=== PATIENT | male | born 1970 | race Caucasian/White ===

== ENCOUNTER 2016-10-05 01:13 | Inpatient (IN) | payer OTHER ==
[2016-10-05] VITALS (8 sets, daily range): BP systolic 131–165; BP diastolic 50–123; Ht 177.8 cm; Wt 129.3 kg
[~2016-10-05] VITALS: Ht 177.8 cm; Wt 129.3 kg
[~2016-10-05 01:13] MED LIST: AMLODIPINE BES2.5 M1 PO; AMLODIPINE BESYL5 M1 PO; ASPIR 8181 MG PO; ASPIR-LOW81 M1 PO; ATORVASTATIN CA40 M1 PO; ATORVASTATIN CA80 M1 PO; CARVEDILOL25 M1 PO; CARVEDILOL3.125 M1 PO; CLONIDINE HCL0.1 MG PO; DULERA1 AR2; DULERA1 AR2 INH; FUROSEMIDE20 MG PO; HYDRALAZINE HCL25 MG PO; HYDRALAZINE HYD50 MG PO; IMDUR ER30 M1 PO; IMDUR30 MG PO; LANTUS SOLOS100 U/M1; LANTUS SOLOS100 U/M1 SQ; LASIX20 MG PO; LASIX40 MG PO; LEVOTHYROXIN0.025 M2 PO; LEVOTHYROXINE0.05 M2 PO; LIPITOR80 MG PO; METOPROLOL SUCC25 M1; MOMETASONE FUROA0.11; NITROSTAT0.4 MG SL; PLA75 PO; XOPENEX HF0.045 MG/1; XOPENEX HF0.045 MG/1 INH; XOPENEX1.25 MG/3
[2016-10-05 02:02] LABS: BASOPHIL % 0.4 % (0-2); PLATELET COUNT 349 x10^3mcL (130-400); RED CELL DISTRIBUTION WIDTH 13.4 % (11.5-14.5)
[2016-10-05 02:10] LABS: ALBUMIN 3.3 g/dL (3.4-5.0); BILIRUBIN TOTAL 0.44 mg/dL (0.20-1.00); CALCIUM 8.6 mg/dL (8.5-10.1); CARBON DIOXIDE 24.8 mmol/L (21-32); CREATININE SERUM 2.1 mg/dL (0.7-1.3); POTASSIUM SERUM 5.1 mmol/L (3.5-5.1)
[2016-10-05 04:31] LABS: MAGNESIUM 2.7 mg/dL (1.8-2.4)
[2016-10-05 04:32] LABS: CHOLESTEROL/HDL RATIO 2.8
[2016-10-05 07:42] LABS: AMPHETAMINE QUAL UR NONE DETECTED (NEG <=1000)
[2016-10-05 08:22] LABS: microscopic required? YES; urine erythrocyte TRACE (NEGATIVE)
[2016-10-06 05:58] LABS: BASOPHIL % 1.3 % (0-2); PLATELET COUNT 319 x10^3mcL (130-400); RED CELL DISTRIBUTION WIDTH 13.1 % (11.5-14.5)
[2016-10-06 06:08] LABS: CALCIUM 8.4 mg/dL (8.5-10.1); CARBON DIOXIDE 21.1 mmol/L (21-32)
[2016-10-06 06:12] VITALS: BP 132/63
[2016-10-06 09:27] VITALS: BP 120/63
[2016-10-06 13:12] VITALS: BP 107/68
[2016-10-06 21:19] VITALS: BP 136/59
[2016-10-06 23:52] LABS: CARBON DIOXIDE 23.4 mmol/L (21-32); CREATININE SERUM 3.3 mg/dL (0.7-1.3); POTASSIUM SERUM 5.3 mmol/L (3.5-5.1)
[2016-10-07 05:56] LABS: BASOPHIL % 0.7 % (0-2); PLATELET COUNT 346 x10^3mcL (130-400); RED CELL DISTRIBUTION WIDTH 13.7 % (11.5-14.5)
[2016-10-07 06:09] VITALS: BP 135/84
[2016-10-07 07:18] LABS: CARBON DIOXIDE 22.1 mmol/L (21-32); CREATININE SERUM 3.4 mg/dL (0.7-1.3); POTASSIUM SERUM 5.3 mmol/L (3.5-5.1)
[2016-10-07 09:43] VITALS: BP 124/57
[2016-10-07 13:44] VITALS: BP 106/52
[2016-10-07 16:57] LABS: CALCIUM 7.7 mg/dL (8.5-10.1); CARBON DIOXIDE 20.1 mmol/L (21-32); CREATININE SERUM 3.8 mg/dL (0.7-1.3); POTASSIUM SERUM 5.5 mmol/L (3.5-5.1)
[2016-10-07 17:08] VITALS: BP 110/49
[2016-10-07 21:32] VITALS: BP 122/69
[2016-10-08 05:52] LABS: BASOPHIL % 0.6 % (0-2); PLATELET COUNT 319 x10^3mcL (130-400); RED CELL DISTRIBUTION WIDTH 13.4 % (11.5-14.5)
[2016-10-08 05:56] LABS: CALCIUM 8.1 mg/dL (8.5-10.1); CARBON DIOXIDE 23.9 mmol/L (21-32); POTASSIUM SERUM 5.5 mmol/L (3.5-5.1)
[2016-10-08 05:57] VITALS: BP 119/53
[2016-10-08 06:00] LABS: CREATININE SERUM 4.1 mg/dL (0.7-1.3)
[2016-10-08 08:12] VITALS: BP 138/69
[2016-10-08 12:01] VITALS: BP 138/69
[2016-10-08 13:51] VITALS: BP 113/66
[2016-10-08 17:36] VITALS: BP 111/56
[2016-10-08 20:57] VITALS: BP 107/52
[2016-10-09 03:04] LABS: CALCIUM 7.9 mg/dL (8.5-10.1); CARBON DIOXIDE 23.4 mmol/L (21-32); POTASSIUM SERUM 5.2 mmol/L (3.5-5.1)
[2016-10-09 03:47] LABS: CREATININE SERUM 4.7 mg/dL (0.7-1.3)
[2016-10-09 05:30] VITALS: BP 124/59
[2016-10-09 05:45] VITALS: BP 124/59
[2016-10-09 06:35] LABS: CALCIUM 7.8 mg/dL (8.5-10.1); PHOSPHOROUS 8.1 mg/dL (2.5-4.9); POTASSIUM SERUM 5.1 mmol/L (3.5-5.1)
[2016-10-09 06:43] LABS: CREATININE SERUM 4.6 mg/dL (0.7-1.3)
[2016-10-09 10:22] VITALS: BP 121/91
[2016-10-09 13:20] VITALS: BP 140/69
[2016-10-09 17:42] VITALS: BP 166/78
[2016-10-09 18:42] LABS: CALCIUM 8.3 mg/dL (8.5-10.1); CARBON DIOXIDE 19.4 mmol/L (21-32); POTASSIUM SERUM 5.1 mmol/L (3.5-5.1)
[2016-10-09 18:56] LABS: CREATININE SERUM 4.4 mg/dL (0.7-1.3)
[2016-10-09 21:05] VITALS: BP 133/59
[2016-10-10 06:36] VITALS: BP 131/72
[2016-10-10 08:28] LABS: BASOPHIL % 1.3 % (0-2); PLATELET COUNT 285 x10^3mcL (130-400); RED CELL DISTRIBUTION WIDTH 13.4 % (11.5-14.5)
[2016-10-10 08:34] LABS: CALCIUM 8.2 mg/dL (8.5-10.1); CARBON DIOXIDE 20.9 mmol/L (21-32); POTASSIUM SERUM 5.3 mmol/L (3.5-5.1)
[2016-10-10 08:39] LABS: CREATININE SERUM 4.1 mg/dL (0.7-1.3)
[2016-10-10 10:01] VITALS: BP 151/80
[2016-10-10 17:54] VITALS: BP 159/80
[2016-10-10 19:30] VITALS: BP 144/71
[2016-10-11 06:07] VITALS: BP 123/60
[2016-10-11 06:14] LABS: MAGNESIUM 2.6 mg/dL (1.8-2.4); PHOSPHOROUS 4.8 mg/dL (2.5-4.9)
[2016-10-11 08:53] VITALS: BP 123/60
[2016-10-11 09:41] VITALS: BP 157/74
[2016-10-11 10:39] LABS: BILIRUBIN TOTAL 0.45 mg/dL (0.20-1.00); CALCIUM 8.6 mg/dL (8.5-10.1); CARBON DIOXIDE 25.3 mmol/L (21-32); CREATININE SERUM 3.2 mg/dL (0.7-1.3); POTASSIUM SERUM 4.8 mmol/L (3.5-5.1); TOTAL PROTEIN, SERUM 6.4 g/dL (6.4-8.2)
[2016-10-11 10:43] LABS: ALBUMIN 3.1 g/dL (3.4-5.0)
[2016-10-11 13:50] VITALS: BP 138/72
[2016-10-11 22:00] VITALS: BP 145/66
[2016-10-12 06:08] VITALS: BP 157/75
[2016-10-12 09:55] VITALS: BP 154/61
[2016-10-12 12:12] LABS: CALCIUM 8.7 mg/dL (8.5-10.1); CARBON DIOXIDE 25.3 mmol/L (21-32); CREATININE SERUM 2.8 mg/dL (0.7-1.3); POTASSIUM SERUM 4.7 mmol/L (3.5-5.1)
[2016-10-12 13:55] VITALS: BP 101/62
[2016-10-12 17:27] LABS: AMPHETAMINE QUAL UR NONE DETECTED (NEG <=1000)
[2016-10-12 17:54] LABS: UA SPECIFIC GRAVITY 1.015 (1.005-1.035); microscopic required? YES; urine erythrocyte NEGATIVE (NEGATIVE)
[2016-10-12 18:29] VITALS: BP 134/64
[2016-10-12 21:34] VITALS: BP 150/64
[2016-10-13 05:09] VITALS: BP 137/55
[2016-10-13 09:22] VITALS: BP 170/73
[2016-10-13 09:31] LABS: CALCIUM 8.7 mg/dL (8.5-10.1); CARBON DIOXIDE 29.6 mmol/L (21-32); CREATININE SERUM 2.7 mg/dL (0.7-1.3); POTASSIUM SERUM 4.7 mmol/L (3.5-5.1)
[2016-10-13 10:19] LABS: BASOPHIL % 0.3 % (0-2); PLATELET COUNT 297 x10^3mcL (130-400); RED CELL DISTRIBUTION WIDTH 13.3 % (11.5-14.5)
[2016-10-13 12:50] VITALS: BP 140/68
[2016-10-13 18:35] VITALS: BP 135/49
[2016-10-13 21:29] VITALS: BP 140/59
[2016-10-14 06:00] VITALS: BP 155/69
[2016-10-14 06:42] LABS: BASOPHIL % 0.6 % (0-2); PLATELET COUNT 300 x10^3mcL (130-400); RED CELL DISTRIBUTION WIDTH 13.2 % (11.5-14.5)
[2016-10-14 06:52] LABS: CALCIUM 8.8 mg/dL (8.5-10.1); CARBON DIOXIDE 27.8 mmol/L (21-32); CREATININE SERUM 2.4 mg/dL (0.7-1.3); POTASSIUM SERUM 4.7 mmol/L (3.5-5.1)
[2016-10-14 09:52] VITALS: BP 150/70
[2016-10-14 13:42] VITALS: BP 108/56
[2016-10-14 17:45] VITALS: BP 135/46
[2016-10-14 21:41] VITALS: BP 152/70
[2016-10-15 05:37] VITALS: BP 158/73
[2016-10-15 06:56] LABS: RED CELL DISTRIBUTION WIDTH 12.8 % (11.5-14.5)
[2016-10-15 08:07] LABS: CALCIUM 8.5 mg/dL (8.5-10.1); CARBON DIOXIDE 25.9 mmol/L (21-32); CREATININE SERUM 2.4 mg/dL (0.7-1.3); MAGNESIUM 1.8 mg/dL (1.8-2.4); POTASSIUM SERUM 4.8 mmol/L (3.5-5.1)
[2016-10-15 08:35] LABS: BASOPHIL % 2.4 % (0-2)
[2016-10-15 09:02] LABS: PLATELET COUNT 313 x10^3mcL (130-400)
[2016-10-15 09:21] VITALS: BP 136/63
[2016-10-15] MEDS ORDERED: IMD60 PO (11:20)
[2016-10-15] MEDS ORDERED: METOPROLOL TART25 M1 PO (11:21)
[2016-10-15] MEDS ORDERED: LAC30L PO (11:24)
[2016-10-15] MEDS ORDERED: ZES20 PO (11:24)
[2016-10-15] MEDS ORDERED: RAN500A PO (11:25)
[2016-10-15 11:26] VITALS: BP 136/63
[2016-10-15 12:46] VITALS: BP 159/78
[2016-10-15] MEDS ORDERED: NOR5 PO (13:02)
== END 2016-10-15 14:40 | disposition other institution (70) | DRG 280 ==
LOC: ED 01:13 → DU 02:35
PROVIDERS: Emergency Medicine; Family Medicine; Internal Medicine; Internal Medicine Cardiovascular Disease; Internal Medicine Nephrology; ADMIT Internal Medicine
PROC: 05HN33Z Insertion of Infusion Device into Left Internal Jugular Vein, Percutaneous Approach (ICD-10-PCS; principal; 2016-10-08)
PROC: B544ZZA Ultrasonography of Left Jugular Veins, Guidance (ICD-10-PCS; 2016-10-08)
DX: I21.4 Non-ST elevation (NSTEMI) myocardial infarction (principal); J96.00 Acute respiratory failure, unspecified whether with hypoxia or hypercapnia; I50.43 Acute on chronic combined systolic (congestive) and diastolic (congestive) heart failure; N17.0 Acute kidney failure with tubular necrosis; I13.0 Hypertensive heart and chronic kidney disease with heart failure and stage 1 through stage 4 chronic kidney disease, or unspecified chronic kidney disease; I42.0 Dilated cardiomyopathy; E87.2 Acidosis; E44.0 Moderate protein-calorie malnutrition; Z68.41 Body mass index [BMI] 40.0-44.9, adult; I25.119 Atherosclerotic heart disease of native coronary artery with unspecified angina pectoris; J44.9 Chronic obstructive pulmonary disease, unspecified; E03.9 Hypothyroidism, unspecified; E78.5 Hyperlipidemia, unspecified; I25.2 Old myocardial infarction; E11.22 Type 2 diabetes mellitus with diabetic chronic kidney disease; E11.65 Type 2 diabetes mellitus with hyperglycemia; K59.00 Constipation, unspecified; R80.8 Other proteinuria; Z88.5 Allergy status to narcotic agent; I27.2 Other secondary pulmonary hypertension; K56.41 Fecal impaction; N18.9 Chronic kidney disease, unspecified; D64.9 Anemia, unspecified; E87.5 Hyperkalemia; E83.39 Other disorders of phosphorus metabolism; E83.41 Hypermagnesemia; Z79.82 Long term (current) use of aspirin; Z79.4 Long term (current) use of insulin; Z86.73 Personal history of transient ischemic attack (TIA), and cerebral infarction without residual deficits
CPT/HCPCS: 36600; 76770; 80307; 82962; 83880; A9500; J1170; J1642; J1644; J1815; J1940; J2405; J2785; J2930; J3010; J7030; J7644; Q0092; Q0163

== ENCOUNTER 2016-12-06 15:00 | Inpatient (IN) | payer OTHER ==
[~2016-12-06] VITALS: Ht 177.8 cm; Wt 135.7 kg
[~2016-12-06 15:00] MED LIST changes: +IMD60 PO; +LAC30L PO; +METOPROLOL TART25 M1 PO; +NOR5 PO; +RAN500A PO; +ZES20 PO
--- NOTE | 2016-12-06 15:21 | NUR ---
MSE COMPLETED BY DR HAYWOOD
--- NOTE | 2016-12-06 15:27 | NUR ---
BREATHING TREATMENT AT BEDSIDE
--- NOTE | 2016-12-06 15:47 | NUR ---
PT HAS RECIEVED NITRO 0.4 MG SL X3 WITH NO DECREASE IN CHEST PAIN. PT ALSO REMAINS HYPERTENSIVE
[2016-12-06 15:55] LABS: BASOPHIL % 0.8 % (0-2); PLATELET COUNT 319 x10^3mcL (130-400); RED CELL DISTRIBUTION WIDTH 13.7 % (11.5-14.5)
[2016-12-06] MEDS ORDERED: ENALAPRIL MALEA20 MG PO (15:56)
[2016-12-06 16:00] LABS: CALCIUM 8.1 mg/dL (8.5-10.1); CARBON DIOXIDE 22.7 mmol/L (21-32); CREATININE SERUM 2.1 mg/dL (0.7-1.3); POTASSIUM SERUM 4.8 mmol/L (3.5-5.1)
[2016-12-06] MEDS ORDERED: RENVELA800 M1 PO (16:00)
[2016-12-06] MEDS ORDERED: ZEMPLAR1 MC1 PO (16:01)
[2016-12-06 16:07] LABS: BILIRUBIN TOTAL 0.45 mg/dL (0.20-1.00); TOTAL PROTEIN, SERUM 6.5 g/dL (6.4-8.2)
[2016-12-06 17:21] LABS: MAGNESIUM 2.2 mg/dL (1.8-2.4)
[2016-12-06 17:22] LABS: CHOLESTEROL/HDL RATIO 2.5
[2016-12-06 17:32] VITALS: BP 158/77
--- NOTE | 2016-12-06 17:41 | NUR ---
RECEIVED A CALL FROM (MANAGER CALL CENTER) AND HE'S CONSULTED BY , UPDATED HIM OF CURRENT LAB RESULTS AND CXRAY, SAID HE WILL COME TO EVAL THE PT TOMORROW. BUTCH FERNANDES AND KENNA FERNANDES AMDE AWARE OF ABOVE.
[2016-12-06 18:21] VITALS: BP 163/76
--- NOTE | 2016-12-06 18:26 | NUR ---
RECEIVED PT FROM ED VIA SHITAL. ORIENTED PT TO ROOM AND SURROUNDINGS. IV NOTED TO RFA PATENT AND INTACT. TELE 26 PLACED ON PT READING NSR. INSTRUCTED PT ON THE USE OF CALL LIGHT FOR ASSISTANCE. ENDORSED PT TO PRIMARY NURSE BUTCH
--- NOTE | 2016-12-06 18:54 | NUR ---
DR. SALGUERO IN TO SEE PATIENT.
[2016-12-06 19:15] VITALS: BP 170/76
--- NOTE | 2016-12-06 19:15 | NUR ---
RECEIVED PT AWAKE ALERT AND VERBALLY RESPONSIVE.BREATHING EASY AND NON-LABORED,DENIES SOB/DIFFULTY BREATHING.NO COUGHING/CONGESTION NOTED.O2 @ 4L/MIN VIA N/C.O2 SAT @ 97%.DENIES CHESTPAIN AT THIS TIME.BP 170/76 MMHG,HR 72.C/O BACK PAIN 05/07.REQUESTING FOR AIR MATRESS AND SNCACKS AT THIS TIME.DR. RIVERA IN TO SEE PT AWARE OF LATEST BP.ALSO C/O LITTLE URINE OUTPUT ALL DAY.BLADDER NON-DISTENDED.LASIX 80 MG IVP ORDERED.EDEMA TO BLE.GUARDS AT BEDSIDE.WILL CONTINUE TO MONITOR.
--- NOTE | 2016-12-06 19:30 | NUR ---
CALLED DR. ALARCON CALLED FOR PAIN MEDS ORDER.NEW ORDERS GIVEN AND WILL CARRY OUT.DR. RIVERA IN TO SEE PT WITH ORDERS GIVEN WELL.WILL CONTINUE TO MONITOR.
--- NOTE | 2016-12-06 21:00 | NUR ---
HEPARIN DRIP INITIATED.BOLUS 8300 UNITS IVP ADMINISTERED.HEPARIN INFUSION STARTED @ 1500 UNITS/HR.WILL CONTINUE TO MONITOR.
[2016-12-06 22:22] VITALS: BP 150/72
--- NOTE | 2016-12-06 22:22 | NUR ---
BP RECHECKED @ 150/72 MMHG,HR 72.DENIES CHESTPAIN AT THIS TIME.HEPARIN DRIP @ 1500 UNITS/HR INFUSING AND TOLERATING WELL.WILL CONTINUE TO MONITOR.
[2016-12-07 03:44] LABS: BASOPHIL % 0.6 % (0-2); PLATELET COUNT 299 x10^3mcL (130-400); RED CELL DISTRIBUTION WIDTH 13.6 % (11.5-14.5)
--- NOTE | 2016-12-07 04:05 | NUR ---
RECEIVED PTT RESULT 57.4.NO CHANGE PER PROTOCOL.WILL RECHECK PTT IN 4 HOURS.
[2016-12-07 04:09] LABS: CALCIUM 8.1 mg/dL (8.5-10.1); CARBON DIOXIDE 24.2 mmol/L (21-32); CREATININE SERUM 2.2 mg/dL (0.7-1.3); POTASSIUM SERUM 5.3 mmol/L (3.5-5.1)
--- NOTE | 2016-12-07 04:56 | NUR ---
PT SLEPT WITH INTERVALS.GUARDS AT BEDSIDE.MEDICATED WITH DILAUDID 1 MG IVP WITH BENADRYL 25 MG PO FOR BACKPAIN/CHESTPAIN WITH GOOD RELIEF.HEPARIN DRIP 1500 UNITS/HR AND TOLERATED WELL.NO BRUISING/BLEEDING NOTED.ALL NEEDS MET.WILL CONTINUE TO MONITOR.
[2016-12-07 06:37] VITALS: BP 135/78
--- NOTE | 2016-12-07 08:00 | NUR ---
RECEIVED PATIENT ALERT AND ORIENTED TIMES FOUR. PATIENT HAS REQUESTED PAIN MEDICATION AND BENADRYL AND GAVE INDICATED. PATIENT HAS DIMINISHED BREATH SOUNDS AND ABDOMEN IS DISTENDED AND FIRM. IF INTACT AND TO NELLIE RIGHT THUMB. PATIENT HAS BEEN ON HEPARIN DRIP DUE TO ELEVATED TROPONIN. PATIENT AHS PTT DUE AT 800AM. VITALS AT THIS TIME AT 97.5, 60, 20, 135/78, 95% ON 02 AT 3LITES. APTIENT HAS BI PAP WHEN SLEEPING AND ON HHN OF XOPENEX AND ALBUTERAL. APTIEN THAS MILD CONGESTIOIVE HEART FAILURE PER X IGNACIO ND HAS BEEN ON LASIX 80MG IVP INDICATED. PATIENT HAS HISTORY OF DIABETES, RENAL INSUFFICIENCY, HTN, AND CHRONIC PANCREATITIS. 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 PATIENT HAS BEEN ON THE MONITO AND LAST BLOOD SUGAR AT 94. TOPONIN AT 1.226, CA AT 8.1 AND ULTRA SOUND PENDING. LAST H AND H AT 9.3/28, PTT AT 54.4 AND POTASSIUM AT 5.3 AND BUN AT 58.0 AND CREATIINES AT 2.2. ANTON AHS TOLERATED CCHO AND IS ALLERGIC TO PHENERGAN AND MORPHINE AND TAPE.
[2016-12-07 09:35] VITALS: BP 137/75
--- NOTE | 2016-12-07 12:05 | NUR ---
ADVISED NOT TO BE GIVING THE LASIX ON THE TELEMETRY FLOOR. CALLED THE DATABASE DESIGNER AND AWAITING CALL BACK AT [facility].
--- NOTE | 2016-12-07 12:57 | NUR ---
PER THE NURSE EMERGENCY ROOM THE LASIX IS TOO HIGH ACUITY FOR THE TELE FLORO AND WILL NEE DTO BE SENT TO ICU FOR TREATMENT. PER THE DOCTOR MAURICE SHE DID NTO FEEL THE NEED TO TRANSFER THE PATEINT AND CALLED HER BACK TO LET HER KNOW THE LASIX CAN NOT BE GIVEN THIS WAY. PER THE PHARMACY IT IS OK TO GIVE AND PER THE DOCTOR THE PATIENT CAN HAVE ANOTHER WAY IF THE CASE IS IT CAN NOT BE DONE ON THE TELE FLOOR. ADVISED AND REQUESTED ASSIST WITH WHETHER IS IS PERMISSIONABLE TO HAVE THE LASIX GIVEN PER THE WEED INSPECTOR, CHARGE AND THE DOCTOR WELL THE PRIMARY AND THE PHARMACY INDICATED. NOW AWAITING CALL BACK FROM THE EMT DRIVER FOR NEW ORDERS FOR THE PATIENT. SHE HAD ADVISE DTHAT THE NURSE CAN GIVEN MORE FREQUANTLY IVP IF NEEDED RATHER THAN THE DRIP.
[2016-12-07 13:34] VITALS: BP 117/45
--- NOTE | 2016-12-07 13:35 | NUR ---
PATEINT SEEN BY ARTI ALARCON AND PLAN OF CARE DISCUSSED. CALLED TO VERIFY THE LASIX ORDER AND PER THE MANAGER DOCUMENT CONTROL THE ORDER FOR LASIX TO BE GIVEN AT 5MG PER HOUR. CALLED THE PHARMACIST TO BE ADVISED OF HOW TO PUT IN THIS ORDER. ALSO THE NEPHROLOGST IS AWARE OF POSSIBLE PROBLEMS WITH GIVING LASIX ON THE TELE FLOOR. THE MANAGER DOCUMENT CONTROL ADVISED IF THE LASIX IS NOT TO GIVEN ON THE MEDICAL FLOOR THAT THE ORDERS CAN BE CHANGED TO IVP INDICATED. ADVISED DR ALARCON OF THE PLAN AND WILL CALL THE BACKGROUND INVESTIGATOR FOR THE OK TO GIVE WELL PHARMACY AND COMBATIBILITY ISSUES WELL.
--- NOTE | 2016-12-07 14:40 | NUR ---
PATIENT HAS NEW ORDER FOR LASIX NOT FOR EVERY EIGHT HOURS. TO START NOW. PATIENT HAS BEEN URINATING AND HAD MINIMAL TILL THIS AM POST THE EIGHTY MG. CONTINUED ON HEPARIN ORDERED AND RUNNING AT 1500 AND GAVE BOLUS AND NEXT PTT AT 1530 TODAY. PATIENT GIVEN PAIN MEDICATION AND WILL MONITOR FOR EFFECTIVENESS.
[2016-12-07 18:08] VITALS: BP 116/53
--- NOTE | 2016-12-07 18:43 | NUR ---
PATIENT HAS BEEN WITHOUT URINATION FOR SIX HOURS NOTW. NO OUTPUT SINCE THE 800 CC PER THIS AM AFTER THE FIRST DOSING OF LASIX. THE SECOND DOSING WAS AT 1530 AND SO FAR NO OUTPUT SINCE.
--- NOTE | 2016-12-07 19:40 | NUR ---
REC'D PT FROM DAY SHIFT NURSE. PT AAOX4, SPEECH CLEAR. NO SIGNS OF DISTRESS NOTED. BREATHING EVEN/UNLABORED ON RA. C/O ABD PAIN AND BACK PAIN 9/10 AND ITCHINESS. WILL GIVE DILAUDID AND BENADRYL PER ORDER. ON TELE #26. DENIES CP, DIZZINESS, OR PALPITATIONS. PITTING EDEMA TO BLE. SHACKLES TO BLE. ON AIR MATTRESS. CALL LIGHT WITHIN REACH, BED AT LOWEST POSITION. GUARDS AT BEDSIDE. WILL CONTINUE TO MONITOR.
[2016-12-07 21:01] VITALS: BP 152/70
--- NOTE | 2016-12-07 21:35 | NUR ---
PTT 41.5. PER HEPARIN PROTOCOL, BOLUSED PT WITH 5500 UNITS HEPARIN AND INCREASED INFUSION TO 1500 UNITS/HR. ORDERED NEXT PTT FOR 0130.
--- NOTE | 2016-12-07 22:19 | NUR ---
BS 116. NO COVERAGE. 30 UNITS LEVEMIR GIVEN. TURKEY SANDWICH WITHOUT TOMATOES, APPLE JUICE, AND SF VANILLA PUDDING GIVEN. PT REPORTS HE HAS NOT VOIDED SINCE 1130. LASIX GIVEN PER ORDER. IF PT STILL HAS NOT VOIDED IN AN HOUR, WILL PERFORM BLADDER SCAN.
--- NOTE | 2016-12-07 22:53 | NUR ---
PERFORMED BLADDER SCAN. APPROX 220-230 ML URINE IN BLADDER. PT REPORTS VOIDING 100 ML AROUND 1999. AFTER BLADDER SCAN, PT VOIDED 200 ML CLEAR YELLOW URINE. CALLED RT TO PUT PT ON BIPAP AROUND 0. WILL CONTINUE TO MONITOR.
--- NOTE | 2016-12-08 02:10 | NUR ---
PT C/O ABD PAIN, CP, AND LOWER BACK PAIN 04/07. ALSO C/O ITCHINESS. DILAUDID AND BENADRYL GIVEN PER ORDER. URINE COLLECTED. WAITING FOR 0130 PTT RESULT. PT ON BIPAP WATCHING TV. NO SIGNS OF DISTRESS NOTED. BREATHING EVEN/UNLABORED. GUARDS AT BEDSIDE. WILL CONTINUE TO MONITOR.
--- NOTE | 2016-12-08 03:16 | NUR ---
RECEIVED CRITICAL PTT 72.6. DECREASED HEPARIN RATE TO 1200 UNITS/HR PER PROTOCOL. VERIFIED WITH BATOOL FERNANDES. ORDERED NEXT PTT FOR 0710. WILL CONTINUE TO MONITOR.
[2016-12-08 03:18] LABS: microscopic required? YES; urine erythrocyte NEGATIVE (NEGATIVE)
[2016-12-08 03:29] LABS: AMPHETAMINE QUAL UR NONE DETECTED (NEG <=1000)
[2016-12-08 05:41] VITALS: BP 134/67
--- NOTE | 2016-12-08 06:20 | NUR ---
PT REPORTS WAKING UP HAVING PALPITATIONS AND FEELING OUT OF BREATH. VSS. BREATHING EVEN/UNLABORED ON RA. SPO2 94%. BREATHING TREATMENT TO BE ADMINISTERED. PT ALSO C/O ABD PAIN AND BACK PAIN 01/05. DILAUDID DUE IN TWO HOURS. BS 85, NO COVERAGE THIS MORNING. PT EATING SF VANILLA PUDDING FROM LAST NIGHT. LASIX IVP TO HELP WITH CONGESTION. NEXT PTT TO BE DRAWN @ 0710. CALL LIGHT WITHIN REACH, BED AT LOWEST POSITION, GUARDS AT BEDSIDE. WILL ENDORSE TO DAY SHIFT NURSE.
[2016-12-08 07:57] LABS: BASOPHIL % 0.6 % (0-2); PLATELET COUNT 293 x10^3mcL (130-400); RED CELL DISTRIBUTION WIDTH 13.7 % (11.5-14.5)
--- NOTE | 2016-12-08 08:00 | NUR ---
RECEIVED PATIENT ALERT AND ORIENTED TIMES FOUR. PATIENT REQUESTED DILAUDID AND BENADRYL. GAVE INDICATED. ALSO WANTS CHEESEBURGERS FOR LUNCH ALONG WITH MILD AND COTTAGE CHEESE. PATIENT WITH EDEMA OF 2 PLUS TO THE LOWER EXTREMITIES AND WITH DISTENDED SOMEWHAT LESS FIRM THAN YESTERDAY AT THIS TIME. CONTINUED ON HEPARIN AND AT 1200 UNITS AT THIS TIME PER HOUR. NEXT PTT AT 700 AND PENDING AT THIS TIME. PATIENT IS AMBULATORY BUT WITH SOME GENERAL WEAKNESS NOTED. ON BI PAP AND HHN TREATMENTS ORDERED. GUARDS AT BEDSIDE AND ATTENTIVE WITH CARE. PATIENTS VITALS AT THIS TIME AT 98.1, 64, 16, 134/67, 94%. PATIENT BLOOD SUGAR AT THIS TIME AT 85. PATIENT WITH HISTORY FO NM, CVA, COPD, DIABETES, CHRONIC RENAL FAILURE AND HAS BEEN WITH ALLERGY TO TAPE, MORPHINE, AND PHENERGAN. PATIENT HAS H AND H OF 9.0/28, AND PTT AT 700AM AT 39.2. HEPARIN NOW RUNNING AT 1500UNITS AND GAVE BOLUS O [id number] ORDERED. RAYO CURIEL BEEN CONTINUED ON LASIX AT 80MG ORDERED TID. WILL CONTINUE TO MONITOR FOR THE EFFECTIVENESS OF THE DILAUDID AND BENADRYL GIVEN.
[2016-12-08 08:09] LABS: IRON 52 ug/dL (65-170); TOTAL IRON BINDING CAPACITY 298 ug/dL (250-450)
[2016-12-08 08:11] LABS: CALCIUM 8.3 mg/dL (8.5-10.1); CARBON DIOXIDE 22.6 mmol/L (21-32); CREATININE SERUM 2.8 mg/dL (0.7-1.3); MAGNESIUM 2.3 mg/dL (1.8-2.4); PHOSPHOROUS 6.9 mg/dL (2.5-4.9)
[2016-12-08 08:31] LABS: POTASSIUM SERUM 5.6 mmol/L (3.5-5.1)
[2016-12-08 09:16] VITALS: BP 138/81
--- NOTE | 2016-12-08 10:00 | NUR ---
ADVISED DR ALARCON OF LAB FINDINGS AND ORDERS FOR KAYEXALATE RECEIVED. PATIENT WAS ALSO WIT ELEVATE TROPONIN, BUN AND CREATININE
--- NOTE | 2016-12-08 11:10 | NUR ---
PATIENT GIVEN DILAUDID AND BENADRYL. PATIENT CONTINUES TO MAKE FREQUENT REQUESTS FOR FOOD AND DRINK AND MEDICATIONS. HE HAS BEEN WITH SUGAR WNL AND PATIENT HAS URINATED 1300CC LAST NIGHT. GAVE LASIX AGAIN AND CALLED DR ALARCON FOR ORDERS FOR ELEVATED POTASSIUM AND HIGH BUN AND CREATININE WELL TROPIN.
[2016-12-08 11:55] VITALS: Ht 177.8 cm; Wt 135.7 kg
[2016-12-08 12:50] VITALS: BP 134/71
[2016-12-08 18:00] VITALS: BP 135/58
--- NOTE | 2016-12-08 18:14 | NUR ---
SEEN BY THE PURSE SEINER AND TOLD THAT THE DIALYSIS IS NOT IN THE CARDS AT THIS TIME. PATIENT COMPLAINS OF PAIN TO THE ABDOMEN AND HE IS GETTING ANGRY AT THE DOCTOR FOR WHAT HE FEELS IS BEING PUT OFF BY THE DOCTOR. CALLED DR ALARCON AND ADVISED OF THE ISSUE AND PER DR ALARCON THE PATIENT WILL NEED TO SEE IF THE KIDNEYS UMPROVE WITH THE PRESENT PLAN OF CARE. GAVE ATIVAN FOR AGITATION AND OFFERED SOMETHING FOR ABDOMINAL PAIN BUT REFUSED ANTI NAUSEA MEDICATION.
--- NOTE | 2016-12-08 18:31 | NUR ---
GAVE DILAUDID AND BENADRYL PER REQUEST AND WILL CONTINUE TO MONITOR. GAURDS AT BEDSIDE AND SECUTITY MAINTAINED.
--- NOTE | 2016-12-08 19:00 | NUR ---
RECEIVED PATIENT RESTING IN BED. PATIENT IS AAOX4. TELE #26 NSR. LUNG SOUNDS DIMINISHED AND CLEAR. PATIENT IS ON BIPAP. PATIENT COMPLAIN OF 10/10 ABDOMINAL PAIN. PAIN MED NOT DUE AT THIS TIME. WILL MEDICATE ONCE DUE. ABDOMEN FIRM AND DISTENDED. BOWEL SOUNDS ACTIVE. PATIENT COMPLAIN OF MINIMAL URINE OUTPUT. IV NOTED TO RIGHT HAND. INTACT AND PATENT. SAFETY AND COMFORT MEASURES IN PLACE. BED IN LOWEST POSITION. CALL LIGHT WITHIN REACH. WILL CONTINUE TO MONITOR.
--- NOTE | 2016-12-08 20:26 | NUR ---
PATIENT COMPLAIN OF ITCHINESS AND 10/10 ABDOMINAL PAIN. MEDICATED WITH DILAUDID 1MG IV AND BENADRYL 25 MG PO ORDERED (SEE MAR).
[2016-12-08 20:37] VITALS: BP 142/71
--- NOTE | 2016-12-09 05:12 | NUR ---
PATIENT RESTING IN BED. NO DISTRESS NOTED. PATIENT WAS MEDICATED 2X WITH BENADRYL FOR ITCHINESS AND 2X DILAUDID FOR PAIN DURING SHIFT. CALL LIGHT WITHIN REACH. WILL CONTINUE TO MONITOR.
[2016-12-09 06:44] VITALS: BP 152/70
--- NOTE | 2016-12-09 07:35 | NUR ---
RECEIVED PATIENT FROM STUDENT FINANCIAL AID MANAGER AND IN NO ACUTE DISTRESS AT THIS TIME STILL WITH ABDOMINAL DISTENTION AND IS WITH SOEM ON AND OFF SOB. ON BI PAP ORDERED AND CONTINUED ON HHN TREATMENTS. PATEINT HAS EDEMA TO THE LOWER EXTREMITES AND GENERAL BLOATED APPEARANCE. STILL TAKING PAIN MEDIATION AND BENADRL AROUND THE CLOCK AND SEEMS EFFECTIVE AT TIME. BLOOD SUGAR REMAINS WNL AND VITALS ARE STABLE AT THIS TIME. IV REMAINS INTACT. BLOOD SUGAR AT 121 AND BUN AT 72/2.8 CREATINE. NOTED MILD CHF AND HISTORY OF NON COMPLIANCE WITH DIET AND FLUID RESTRICTION. PATIENT WITH H AND H OF 9.0/28. ON AIR MATTRESS AND ABLE TO AMBULATE AND USES URINAL AT BEDSIDE. STATES MINIMAL OUTPUT OF URINE AND ON LASIX ORDERED TID. VITALS AT 98.3, 67, 18, 152/70, 101, 94%.
[2016-12-09 09:10] LABS: PLATELET COUNT 306 x10^3mcL (130-400); RED CELL DISTRIBUTION WIDTH 14.2 % (11.5-14.5)
[2016-12-09 09:27] LABS: CARBON DIOXIDE 22.1 mmol/L (21-32); CREATININE SERUM 3.4 mg/dL (0.7-1.3)
[2016-12-09 09:35] LABS: POTASSIUM SERUM 5.9 mmol/L (3.5-5.1)
--- NOTE | 2016-12-09 11:23 | NUR ---
PATIENT STATES PAIN MEDICATION WAS NOT EFFECTIVE. HE COMPLAINS HE NEEDS MORE DILAUDID AND THREE HOURS NOT SIX OF 2MG AND NOT ONE MG. NOTED NO OTHER PAIN MEDICATION BUT THE TYLENOL AND ORAL ATIVAN WELL. WILL CALL DR ALARCON INDICATED ON PATIENTS BEHALF.
--- NOTE | 2016-12-09 12:06 | NUR ---
PER THE NAT INSTRUCTOR THE PATEINT IS URINATING ALOT BUT TO THE RN AND THE PHYSICIANS HE IS DENYING THIS. PATIENT HAS BEEN REQUESTING MORE MEDICATION FOR PAIN AND DR IS AWARE AND TO SEE PATIENT SOON DR ALARCON IS ON HIS WAY. PATIENT STILL DISTENDED BUT WANTS MORE FOOD AND FLUIDS. WILL CONTINUE TO MONITOR.
--- NOTE | 2016-12-09 13:38 | NUR ---
PATIENT WAS SEEAN BY DR ALARCON AND ADVISED OF PLAN OF CARE. GAVE THE KAYEXALATE ALTHOUGH THE PATIENT WAS VERY RESISTANT TO TAKING THE MEDICATION. BLOOD SUGAR AT LUNCH AT 147 AND NO INSULIN COVERAGE WAS GIVEN. GAURDS AT BEDSIDE AND SECURITY MAINTAINED.
[2016-12-09 14:49] VITALS: BP 134/58
--- NOTE | 2016-12-09 15:49 | NUR ---
PATIENT HAD TAKEN A SHOWER AND WHEN GIVING THE DILAUDID PER REQUEST THE DILAUDID WENT IN BUT WHEN THE FLUSH STARTED THE IV MET RESISTANCE AND STARTED TO LEAK FLUID AROUND THE SITE. FIVE ATTEMPTS WERE MADE AND THREE HAD BLOOD FLASH AND TWO NOTHING AND THE LAST NUMBER SIX TO THE OPPOSING THUMB WITH A 24 GAUGE. TOLERATE WELL AND WAS ANXIOUS TO GET A NEW SITE FOR HIS PAIN. POST STARTING CALLED DR ALARCON FOR AN EXTRA DOSE THE FLUID WAS WASTED.
--- NOTE | 2016-12-09 15:59 | NUR ---
PATIENT TO HAVE ONE EXTRA DOSE OF DILAUDID PER DR ALARCON. WILL GIVE AND CONTINEU TO MONITOR.
--- NOTE | 2016-12-09 16:26 | NUR ---
GAVE DILAUDID AND THE IV INFUSED WELL.
[2016-12-09 17:41] LABS: CALCIUM 8.4 mg/dL (8.5-10.1); CARBON DIOXIDE 18.6 mmol/L (21-32); CREATININE SERUM 3.4 mg/dL (0.7-1.3)
[2016-12-09 17:45] VITALS: BP 132/57
[2016-12-09 18:41] LABS: POTASSIUM SERUM 5.8 mmol/L (3.5-5.1)
--- NOTE | 2016-12-09 19:03 | NUR ---
PATIENT HAS AN ORDER FOR CASTLE PLACEMENT. PATIENT HAS BEEN URINATING VIA RESTROOM AND URINAL AND OUTPUT NOTED TO BE ADEQUATE. PATIENT SEEN BY RN INVASIVE AND NOTED POTASSIUM LEVEL. GAVE KAYEXALATE ORDERED AND PATEINT IS HAVING BOWEL MOVEMENTS EXPECTED.
--- NOTE | 2016-12-09 19:30 | NUR ---
RECEIVED REPORT FROM DENA HILL. PT RESTING COMFORTABLY IN BED IN NO ACUTE DISTRESS. AAOX4. DENIES OF NEW/DIZZINESS. ON TELE MON SR. DENIES OF ANY CHEST DISCOMFORT AT THIS TIME. PER PULSES MOD. +2 BLE EDEMA. PT ON HEP SQ. IN RA WITH SAT OF 97%. BREATHING EVENLY AND UNLABORED. LUNGS DIMINISHED. BS ACTIVE. ABD FIRM AND DISTENDED. LAST BM TODAY SOFT STOOL PER PT. PT VOIDS IN THE URINAL. AMBULATES STEADILY. SKIN DRY AND INTACT. ADMITS TO ABD AND BACK PAIN WILL MEDICATE PER PRN ORDER. IV ON L THUMB PATENT. GUARDED WITH TWO GUARDS ON THE BEDSIDE. SAFETY MEASURES ENSURED. INSTRUCTED PT TO CALL FOR ANY NEEDS/ASSISTANCE. CALL LIGHT WITHIN REACH. WILL CONT TO MONITOR PT.
--- NOTE | 2016-12-09 20:23 | NUR ---
PATIENT REFUSED THE CASTLE ORDDERED. EXPLAINED THE RATIONAL AND STILL REFUSED PLACEMENT.
[2016-12-09 20:51] VITALS: BP 137/66
--- NOTE | 2016-12-10 05:00 | NUR ---
PT SLEPT COMFORTABLY THROUGH OUT THE NIGHT. PT UTILIZED BI PAP MACHINE WHEN ASLEEP. URINE OUTPUT OF 1200 CC. REFUSED ALL LACTULOSE AND KAYEXALATE MEDICATION. WAS IN NO ACUTE DISTRESS OR DISCOMFORT. PAIN MANAGEMENT ENFORCED. SAFETY MEASURES WERE ENSURED. CALL LIGHT WITHIN REACH.
[2016-12-10 06:02] VITALS: BP 132/66
[2016-12-10 06:35] LABS: CALCIUM 8.4 mg/dL (8.5-10.1); CARBON DIOXIDE 22.6 mmol/L (21-32); CREATININE SERUM 3.6 mg/dL (0.7-1.3); POTASSIUM SERUM 5.2 mmol/L (3.5-5.1)
--- NOTE | 2016-12-10 07:30 | NUR ---
RECEIVED PATIENT ASLEEP ON BIPAP; AROUSABLE DENIES PAIN, NO ACUTE DISTRESS NOTED, BLE WITH CUFFS ON, IV INTACT AND SALINE LOCK. OFFICERS REMAIN AT BEDSIDE; CONT TO MONITOR.
[2016-12-10 09:49] VITALS: BP 137/67
--- NOTE | 2016-12-10 10:10 | NUR ---
DR. ALARCON SEEN PATIENT AT THIS TIME, DISCUSS PT'S CONDITION REQUIRED HD; PER PATIENT DON'T WANT HD AND REQUEST MD TO CHANGE DIET TO REGULAR. PER MD OKAY TO GIVE PATIENT REGULAR DIET.
--- NOTE | 2016-12-10 11:15 | NUR ---
Patient resting bed on bipap, no acute distress noted, dilaudid 1mg IVP and benadryl 25mg po given per requested for 02/04 pain. Cont to monitor.
--- NOTE | 2016-12-10 11:40 | NUR ---
Patient resting in bed, Officers at bedside, RN present to witness Dr. Ward explained risk bleeding, infections, arrhythmias, brain damage, stroke, and with Hemodialysis. MD explained fluid restriction 1 liters/day and renal diet. Patient agree porceed with HD and consent signed. Per Dr. Ward inform Dr. Petit with plan for HD; Dr. Hale was consult for HD catheter placement. Patient request nurse for juices; RN re-inforced fluid restriction and hospital policy for inmate/patient. Patient a little upset.
--- NOTE | 2016-12-10 12:58 | NUR ---
PATIENT EATING HIS LUNCH, PAIN IS RELIEF 09/07, DUE MEDS GIVEN, REFUSED KAYEXALATE, RE-INFORCED FLUID RESTRICTION, NEEDS ANTICIPATED.
[2016-12-10 13:04] VITALS: BP 125/71
--- NOTE | 2016-12-10 14:08 | NUR ---
RECEIVED A CALL FROM ([facility] SURGEON), HE WAS CONSULTED BY FOR DIALYSIS CATH PLACEMENT. RECEIVED NEW ORDER FROM TO OBTAIN CONSENT FOR PERMACATH PLACEMENT THAT HE WILL PLACE TOMORROW AT 12NOON. CALLED TO JOVANNI(CASEMANAGER) AND MADE HER AWARE OF ABOVE AND THEREAFTER WILL CALL DIALYSIS CENTER AFTER CATH PLACEMENT FOR HEMODIALYSIS. SARATH FERNANDES ASSIGNED TO THIS PT MADE AWARE OF ABOVE.
--- NOTE | 2016-12-10 14:40 | NUR ---
Patient resting in bed no complaint, awake and alert, consent for Permacath placement obtain and patient sign with no futher questions.
--- NOTE | 2016-12-10 17:28 | NUR ---
PATIENT IN BED OFF BIPAP, MEDICATED FOR PAIN 8/10 BACK PAIN WITH DILAUDID AND BENADRYL PER REQUEST. IV INTACT. CONT TO MONITOR.
[2016-12-10 17:34] VITALS: BP 157/76
--- NOTE | 2016-12-10 18:50 | NUR ---
DR. UGARTE CALL FOR UPDATE ON PATIENT CATH PLACEMENT; INFORM MD THAT DR. CERDA WILL PLACE PERMACATH TOMORROW. MD WANT STAT ORDER BMP AND NEED TO CALL MD TO NOTIFY.
--- NOTE | 2016-12-10 19:07 | NUR ---
CALL DR. CERDA SPOKE WITH ANSWER SERVICE RE : PLAVIX D/C PER .
--- NOTE | 2016-12-10 19:20 | NUR ---
PATIENT RECEIVED AWAKE, ALERT, AND ORIENTED X 4. NO DISTRESS NOTED. PATIENT DENIES PAIN AT THIS TIME. IV SITE TO RIGHT HAND, INFILTRATED. WILL D'C. IV SITE TO LEFT HAND, PATENT AND INTACT AND HEPLOCKED. BED IN LOWEST POSITION. CALL LIGHT WITHIN REACH. WILL CONTINUE TO MONITOR.
[2016-12-10 19:26] LABS: CALCIUM 8.2 mg/dL (8.5-10.1); CARBON DIOXIDE 27.7 mmol/L (21-32); CREATININE SERUM 3.5 mg/dL (0.7-1.3)
--- NOTE | 2016-12-10 19:45 | NUR ---
IV D'C TO RIGHT HAND AND REINSERTED TO RIGHT FOREARM, PATENT AND INTACT.
[2016-12-10 19:50] LABS: POTASSIUM SERUM 5.6 mmol/L (3.5-5.1)
--- NOTE | 2016-12-10 20:10 | NUR ---
CALLED [facility]. APPEALS AND GENERALIST CLERK STATED SHE CAN'T PAGE DR UGARTE BECAUSE HE IS NOT MECHANICAL LEAD [facility]. RECEIVED CALL FROM MECHANICAL LEAD DR GLADYS SERNA. REPORTED BMP RESULTS. PER DR SERNA WILL REPORT TO DR UGARTE.
--- NOTE | 2016-12-10 20:44 | NUR ---
PATIENT SIGNED REFUSAL FORM FOR KAYEXALATE AND LACTULOSE.
[2016-12-10 21:18] VITALS: BP 160/70
--- NOTE | 2016-12-10 22:23 | NUR ---
RECEIVED CALL FROM DR UGARTE. REQ THAT KARATE TEACHER BE NOTIFIED IN THE AM IF POTASSIUM >5.8.
--- NOTE | 2016-12-10 23:45 | NUR ---
PATIENT CHANGED MIND ABOUT TAKING KAYEXALATE AFTER SPEAKING WITH DR UGARTE. KAYEXALATE GIVEN.
[2016-12-11 05:22] LABS: BASOPHIL % 0.2 % (0-2); PLATELET COUNT 301 x10^3mcL (130-400); RED CELL DISTRIBUTION WIDTH 13.6 % (11.5-14.5)
[2016-12-11 05:40] LABS: CALCIUM 8.4 mg/dL (8.5-10.1); CARBON DIOXIDE 21.9 mmol/L (21-32); CREATININE SERUM 3.4 mg/dL (0.7-1.3); POTASSIUM SERUM 4.7 mmol/L (3.5-5.1)
--- NOTE | 2016-12-11 05:48 | NUR ---
SET UP MECHANIC HEADING MACHINES DR MOTLEY COVERING FOR DR UGARTE ON PROPERTY AT THIS TIME. DR MOTLEY AWARE OF LAB RESULTS.
--- NOTE | 2016-12-11 06:03 | NUR ---
CHAUNCEY FROM LAB CALLED AND REPORTED CRITICAL LAB FOLLOWS; bun=85.0, creat=3.4, k+=4.7 and troponin=0.523. relayed to assigned nurse Zayra.
[2016-12-11 06:39] VITALS: BP 153/66
--- NOTE | 2016-12-11 06:44 | NUR ---
SPOKE TO DR CERDA ([phone]) REGARDING PATIENT BEING ON HEPARIN SQ AND PLAVIX WHICH THE PATIENT GOT YESTERDAY. STATED THATS OK.
--- NOTE | 2016-12-11 07:15 | NUR ---
Pt is A+Ox4, denies headache, nausea, complaining of pain. Tele #26, NSR, pulses moderate and equal bilaterally, generalized edema, lung sounds diminished, bowel sounds active, abdomen distended, voiding without difficulty, Left sided weakness, air mattress in place, skin intact, IV in RFA and LH, sites WNL and CDI.
--- NOTE | 2016-12-11 08:52 | NUR ---
SPOKE TO KAMRAN KLEIN FROM DIALYSIS. SCHEDULED DIALYSIS AT 1400. MENTIONED TO KAMRAN KLEIN THAT Pt WILL BE HAVING A PERMACATH TODAY AT [address] UGARTE IS THE MOTOR ADJUSTER DOCTOR.
--- NOTE | 2016-12-11 09:08 | NUR ---
SPOKE TO OR AND PERMACATH IS SCHEDULED AT 1300. RELAYED INFORMATION TO KAMRAN KLEIN AND RESCHEDULED DIALYSIS AT 1500.
[2016-12-11 09:31] VITALS: BP 146/64
--- NOTE | 2016-12-11 09:37 | NUR ---
CALLED TO DR.MINNA MAURICE(ASW SPECIALIST) AND VERIFY WITH HER IF QUANTIFERON TB GOLD THAT WAS ORDERED BY WAS TO R/O TB OR IF IT IS FOR PREP FOR NEW HEMODIALYSIS PT, SAID TO DISCONTINUE THE ORDER OF QUANTIFEREON FOR THAT IS AN ERROR. JYOTSNA FERNANDES ASSIGNED TO THIS PT MADE AWARE OF ABOVE.
--- NOTE | 2016-12-11 10:00 | NUR ---
OR CALLED, SPOKE WITH LOLY. MADE AWARE OF DC ORDER OF QUANTIFERON TB. PERMACATH PLACEMENT SCHEDULED FOR 1300.
--- NOTE | 2016-12-11 10:00 | NUR ---
Temperature 99.8, Pt refused cooling measures, Tylenol given.
--- NOTE | 2016-12-11 10:00 | NUR ---
Pt O2 Sat: 88%. Placed pt on 3L NC, O2Sat retaken: 93%. Will continue to monitor O2Sat.
--- NOTE | 2016-12-11 11:56 | NUR ---
Pt given Dilaudid for 8/10 pain in abdomen. Will continue to monitor pt pain level.
--- NOTE | 2016-12-11 12:30 | NUR ---
Pt OFF THE UNIT FOR PERMACATH PROCEDURE.
--- NOTE | 2016-12-11 15:05 | NUR ---
PATIENT BACK FROM OR. AOX4. TUNNELED PERMACATH PLACED TO RT UPPER CHEST/RIJ, SITE WNL, PATIENT STATES IT HURTS. BAND AID X1 AND STERISTRIP TO RT NECK CDI, PER OR NURSE LOLY, ATTEMPTED INSERTION INITIATED TO RT NECK SITE PRIOR. OLD IV'S WERE DC'D IN OR AND NEW IV WAS STARTED TO RT FOOT. DR ALARCON PAGED TO INFORM OF RT FOOT IV AND IF OK TO USE, ANTICIPATING CALL BACK. VITAL SIGNS TAKEN, 2L NC PLACED BACK ON O2 SAT 95%. HD NURSE ANDREW HERE, INITIATING HD, ORDERS AND SIGNED CONSENT GIVEN. WILL CONT TO MONITOR. OFFICERS AT BEDSIDE.
--- NOTE | 2016-12-11 16:48 | NUR ---
1. Continue Renal diet per MD. 2. Consider Renal, CCHO-75 gm diet if BG levels trending high. 3. Recommend Nephro-juan daily.
--- NOTE | 2016-12-11 16:48 | NUR ---
Initial Nutrition Assessment Dx: N Stemi, Acute Heart Failure PMHx: CAD, CHF, CVA, [place], dyslipidemia, HTN, CKD, chronic pancreatitis, DM PSHx: None Labs: Na 134 L, BG 207 H, BUN 85 H, Cr 3.4 H, Troponin 0.523 H, H/H 9.9/30 L; (12/08) Phosphorous 6.9 H; (12/06) ALB 3 L Meds: Cephulac, Colace, D10, humulin R, imdur, kayexalate, Lasix, levemir, Pepcid, renagel, synthroid, heparin Current Diet Order: Renal PO Intakes: (12/08) B: 100%, L: 100%, D: 100%; (12/09) B: 80%, L: 80%; (12/10) L: 100% Ht: 70", 5' 10". Wt: 297 lb, 135 kg. BMI: 42.9 kg/m2 (Obesity Class III) IBW: 166 lb, 75 kg. %IBW: 180%. Adj BW: 199 lb, 90 kg. UBW: 283 lb, 129 kg. Wt Hx: (10/09/16) 283 lb, 129 kg. Age: 46 Y/O M Food Allergies: None Skin: Intact. Shahid 19. Edema: Generalized edema GI: Active bowel sounds. Last BM 12/09. Pt found with CAD, angina, acute coronary syndrome, CHF, acute kidney insufficiency, CKD, HTN, DM, dyslipidemia per MD's notes. Per [facility] Huddle reports, pt will have permacath placement, and have dialysis after. Per nursing notes, permacath placement scheduled at 1300. Pt was seen undergoing dialysis during RD visit, security guards x2 at bedside, reported hates the renal diet, and wants something better. Lunch tray seen at bedside, 65% consumed. Problem with: N: None. V: None. D: None. C: None. Problems with: Chewing: None. Swallowing: None. Current Appetite: Good Recent Weight Change: +14 lb. % Weight Change: 4.9% weight gain within 2 months Vitamin/Supplement use: None Diet at Home (Pt is a resident at [facility]): Regular; Pt reports eating a lot of ramen and chips Physical Activity: Walks Education: RD provided renal nutrition education and handouts to pt, discussed portion control, low sodium food options, and low potassium food options. Pt mildly receptive, accepted handouts and verbalizes understanding. Estimated Nutritional Needs Based IBW 166 lb, 75 kg Energy: 3577-5679 kcal/day (30-35 kcal/kg for Dialysis Status) Protein: 90-105 gm/day (1.2-1.4 gm/kg for Dialysis Status) Fluids: 1-1.5 L/day (25 ml/kg for Geriatric Maintenance) or per doctor Nutrition Diagnosis Increase nutritional needs related to chronic kidney disease on dialysis as evidenced by pt s/p permacath placement, dialysis Intervention 1. Continue Renal diet per MD. 2. Consider Renal, CCHO-75 gm diet if BG levels trending high. 3. Recommend Nephro-juan daily. Monitor/Evaluate Goal: PO intakes to meet >75% of estimated needs with tolerance Monitor: PO intakes, tolerance to diet, labs (renal, BG), skin integrity, GI function, weights F/U in 7 days as LOW risk (12/18)
[2016-12-11 17:57] VITALS: BP 152/69
--- NOTE | 2016-12-11 18:05 | NUR ---
SPOKE WITH DR ALARCON REGARDING IV TO RT FOOT 22G STARTED IN OR. TELEPHONE READBACK ORDER TO KEEP AND USE IV SITE.
--- NOTE | 2016-12-11 18:30 | NUR ---
HEMODIALYSIS COMPLETE, 2L OUTPUT. HEPARIN 5000 UNITS TO BE GIVEN POST DIALYSIS IV PER DIALYSIS NURSE, WRITTEN ORDER OBTAINED AND HEPARIN ADMINISTERED BY DIALYSIS NURSE. PATIENT TOLERATED WELL. VITALS RECEIVED, LAST BP 152/96 - BP MEDICATIONS GIVEN. DILAUDID GIVEN FOR ABD PAIN. WILL CONT TO MONITOR AND ENDORSE TO NOC RN.
[2016-12-11 20:38] VITALS: BP 165/76
--- NOTE | 2016-12-11 20:57 | NUR ---
PT IS RESTING. HAD RIGHT SUBCLAVIAN CATH FOR HEMODIALYSIS. HAD DIALYSIS DONE AND THEY SAID 1999 WAS OUT. RIGHT FOOT HEPLOCK IV AND PATENT. LUNGS CLEAR ON AUSCULTATIONS BILATERALLY UPPER AND LOWER BASES. PT IS USING 2 LITERS NASAL CANNULA. NO SOB NOTED. WITH AIR MATTRESS. WITH HEP SQ. MADE COMFORTABLE IN BED. CALL LIGHT WITHIN EASY REACH.
--- NOTE | 2016-12-11 23:59 | NUR ---
PT C/O BACK AND CHEST PAIN 04/07. MEDICATED WITH DILAUDID 1 MG IVPUSH. WILL MONITOR/
--- NOTE | 2016-12-12 04:29 | NUR ---
DR. BEACH WAS NOTIFIED ABOUT THE WORSENNING ITCHINESS. AND THE CONTINOUS TO HAVE ANXIETY, HE ORDERED VISTARIL 50 MG PO. WAS ADMINISTERED,
--- NOTE | 2016-12-12 05:33 | NUR ---
PT IS AWAKE AND ALREADY ASKING FOR THE SIX OCLOCK DILAUDID I MG IVPUSH. HE STATED HE HAS A LOT OT PAIN IN THE RIGHT NECK AND HIS BACK. RIGHT FOOT HEPLOCK IV. MADE COMFORTABLE IN BED. CALL LIGHT WITHIN EASY REACH.
--- NOTE | 2016-12-12 06:08 | NUR ---
MEDICATED WITH DILAUDID 1 MG IVPUSH FOR HIS BACK AND NECK PAIN 10/10.
[2016-12-12 06:16] VITALS: BP 174/76
[2016-12-12 06:33] LABS: CALCIUM 8.4 mg/dL (8.5-10.1); CARBON DIOXIDE 30.7 mmol/L (21-32); CREATININE SERUM 2.9 mg/dL (0.7-1.3); PHOSPHOROUS 2.9 mg/dL (2.5-4.9); POTASSIUM SERUM 4.3 mmol/L (3.5-5.1)
[2016-12-12 07:27] LABS: BASOPHIL % 0.4 % (0-2); PLATELET COUNT 277 x10^3mcL (130-400); RED CELL DISTRIBUTION WIDTH 13.8 % (11.5-14.5)
--- NOTE | 2016-12-12 08:00 | NUR ---
RECIEVED PATIENT ALERT AND ORIENTED WITH BI PAP IN PLACE. PATIENT WITH ON AND OFF PAIN TO THE ABDOOMEN AND BACK NOTED. PATIENT HAS IV TO THE FOOT AND WITH SUGAR CATH TO THE RIGHT CHEST WALL. PATIENT HAS HAD DIALYSIS YESTERDAY AND PATIENT HAD 2 LITERS REMOVED. PATIENT HAS DIMINSHED BREATH SOUNDS AND NOTED THE ABODM REMAINS DISTENDED BUT THE EDEMA TO THE LOWER EXTREMITIES IS NOTIBALLY IMPROVED. PATIENT WITH GAURDS AT BEDDSIDE AND SECURITY HAS BEEN MAINTAINED. PATIENT AHS VITALS AT THIS TIME AT 99.2, 109, 18, 174/75, 95%. HX OF DIABETES AND RENAL FAILURE WELL HYPERTENSION NOTED. PATIENT NOTED LABD OF POTASSIUM AT 5.6, AND WITH BUN AT 58.6, CREATININE AT 2.9, H AND H 9.9/30. PATIENT IWHT BI PAP AT NIGHT AND ENCOURAGE TO DEEP BREATH OFTEN. ON DIALDID AND BENADRYL AND HAS CONTINUED ITS USE FOR PAIN AND ITCHING. WILL CONTINUE TO MONITOR INDICATED.
--- NOTE | 2016-12-12 08:00 | NUR ---
RECEIVED PATIENT WITH NOTED VENANCIO CATH TO THE RIGHT CHEST WALL. IV INTACT TO THE FOOT AND PATIENT HAS LESSEN EDEMA TO THE FEET AND STILL WITH DISTENDED AND FIRM ABDOMEN. PATIENT HAS NOTED LABS OF CA AT 8.3, WBC AT 3.6, LIPASE AT 703, CHEST X RAY IS NEGATIVE AND CT OF THE ABODMEN AND PELVIS SHOWS SMALL PLEURAL EFFUSION AND WITH INCRESE IN ASCITES AND CIRRHOSIS WITH QUESTIONABLE 1.2 HYDRODENSE AREA IN THE LATERAL RIGHT MANUEL. SMALL GALLSTONES OR SLUGE NOTED TO THE GALLBLADDER ADN APPATEINT HAS DEGENERATIVE CHANTES TO SPINE AND HIP. PATIENT HAS BEEN GIVEN MS AT 8:41, PHENGRAN GIVEN ALSO FOR NAUSEA. WILL CONTINUE TO MONITOR INDICATED. VITALS AT THIS TIME AT 97.7, 18,169/99, 95%. PATIENT HAS SOEM EDEMA OF THE LOWER EXTREMTIES AND ABDOMEN IS DISTENDED BUT ONLY MODERATELY. LUNGS ARE [id number] AND PATIENT HAS STATED HE IS WITH NAUSEA. NO VOMITING NOTED.
[2016-12-12 09:18] LABS: RAPID PLASMA REAGIN Non Reactive (Non Reactive)
[2016-12-12 09:50] VITALS: BP 138/61
--- NOTE | 2016-12-12 11:30 | NUR ---
PATIENT TOLERATE DIET AND FLUIDS WELL AND ALTHOUGH HE HAS BEEN NON COMPLIANT PATINE IS AWARE OF THE NEED TO HAVE FLUIDS RESTRICTIONS AND TO REDUCE CALORIE INTAKE. PATIENT BLOOD SUGAR AT 1130 AT 252 AND GAVE INSULIN ORDERED.
--- NOTE | 2016-12-12 13:53 | NUR ---
GAVE DILAUDID AND BENADRYL ORDERED AND PATEINT USES THE BI PAP WHEN EVER SLEEPING. GAURDS AT BEDSIDE AND SECURITY MAINTAINED.
[2016-12-12 14:09] VITALS: BP 126/64
[2016-12-12 18:23] VITALS: BP 129/65
--- NOTE | 2016-12-12 19:30 | NUR ---
REC'D PT FROM DAY SHIFT NURSE. PT AAOX4, SPEECH CLEAR. ON BIPAP. NO SIGNS OF DISTRESS NOTED. BREATHING EVEN/UNLABORED ON RA. C/O SOME ABD PAIN AND TENDERNESS. ON TELE #26. DENIES CP, PALPITATIONS, OR DIZZINESS. TRACE EDEMA BLE. SAUL TO R UPPER CHEST CDI. LAST HD 12/12, 3L OUT VIA SAUL CATH. SKIN INTACT. GEN WEAKNESS BUT AMBULATORY. ON AIR MATTRESS. CALL LIGHT WITHIN REACH, BED AT LOWEST POSITION, GUARDS AT BEDSIDE. WILL CONTINUE TO MONITOR.
--- NOTE | 2016-12-12 19:57 | NUR ---
PT HAS HD ORDERED FOR 12/13 @ 0800. SPOKE TO KAMRAN KLEIN OF [facility] TO CONFIRM APPOINTMENT.
[2016-12-12 21:14] VITALS: BP 121/63
--- NOTE | 2016-12-13 | NUR ---
PT REFUSING KAYEXALATE AND CEPHULAC. EDUCATED PT OF IMPORTANCE OF TAKING MEDS TO REDUCE POTASSIUM AND AMMONIA. PT VERBALIZED UNDERSTANDING BUT STATES HE DOES NOT WANT TO KEEP GETTING UP FOR BMs AND CONTINUES TO REFUSE. WILL CONTINUE TO MONITOR.
--- NOTE | 2016-12-13 00:12 | NUR ---
PT C/O ABD AND BACK PAIN 03/07. ALSO C/O ITCHINESS. DILAUDID AND BENADRYL GIVEN PER ORDER. SANDWICH GIVEN PER REQUEST. WILL CONTINUE TO MONITOR.
[2016-12-13 01:22] VITALS: BP 121/63
--- NOTE | 2016-12-13 02:35 | NUR ---
PT RESTING IN BED WITH EYES CLOSED. AUDIBLE SNORING, ON BIPAP. NO SIGNS OF DISTRESS NOTED. BREATHING EVEN/UNLABORED. GUARDS AT BEDSIDE. CALL LIGHT WITHIN REACH, BED AT LOWEST POSITION. WILL CONTINUE TO MONITOR.
[2016-12-13 05:14] VITALS: BP 133/64
[2016-12-13 05:57] LABS: BASOPHIL % 0.5 % (0-2); PLATELET COUNT 257 x10^3mcL (130-400); RED CELL DISTRIBUTION WIDTH 13.6 % (11.5-14.5)
[2016-12-13 06:07] LABS: CARBON DIOXIDE 30.4 mmol/L (21-32); PHOSPHOROUS 4.1 mg/dL (2.5-4.9)
--- NOTE | 2016-12-13 06:36 | NUR ---
PT RESTING IN BED. NO SIGNS OF DISTRESS NOTED. ON BIPAP.C/O ABD PAIN AND BACK PAIN 8/10 WELL ITCHINESS. DILAUDID AND BENADRYL GIVEN PER ORDER. DENIES ANY OTHER DISCOMFORT. REPORTS SLEEPING A LITTLE BIT. CONTINUES TO REFUSE KAYEXALATE AND CEPHULAC DESPITE PROVIDING EDUCATION. BS 202, 6 UNITS GIVEN. SUGARFREE JELLO AND PUDDING GIVEN PER REQUEST. DAILY CHG BATH COMPLETED FOR CENTRAL LINE. HD SCHEDULED FOR TODAY. NO URINE OUTPUT THIS SHIFT. CALL LIGHT WITHIN REACH, BED AT LOWEST POSITION, GUARDS AT BEDSIDE. WILL ENDORSE TO DAY SHIFT NURSE.
--- NOTE | 2016-12-13 10:00 | NUR ---
ENCOURAGE TO DEEP BREATH AND TO FOLLOW DIET AND FLUID PLAN OF CARE. PATIENT INDICATED HE WAS NOT ABLE TO SURVIVE WITH THE DIET IT IS. WILL CONTINUE TO EDUCATE INDICATED. GUARDS AT BEDSIDE AND SECURITY MAINTAINED.
[2016-12-13 10:13] VITALS: BP 129/62
--- NOTE | 2016-12-13 11:36 | NUR ---
GAVE PATIENT HIS MEDICATIONS AND PATIENT HAS BEEN ON BI PAP AND RECEIVED IS DILAUDID AND BENADRUL THIS AM. IV INTACT TO TJHE LEFT FOOT AND PATIENT AHS BEEN WITH SUGAR AND THE DRESSING IS DRY AND INTACT. PATIENT HAS MARKEDLY LESS EDEMA TO THE LOWER EXTREMTIES AND WITH LESS DISTENTION TO THE ABDOMEN AND CHEST NOTED. PATIENT NOTED THE REDUCTION OF SWELLING AROUND THE EYS AND TO EACH HAND. PATIENT THOUGH HAS BEEN NON COMPLIANT WITH DIET AND FLUIDS AND REQUESTING MORE FLUIDS AND FOOD. BLOOD SUGAR AT THIS TIME AT 202 AND INSULIN COVERAGE WAS GIVNE. APTIENT HAS BI PAP AT BEDSIDE AND USING EACH TIME HE SLEEPS AND THIS IS POST PAIN MEDICATION AND MEALS. PATIENT AHS HISTORY OF CHF, CAD, DM. ESRD, CVA, DE, DYSLIPIDEMIA, HTN AND CRHONIC PANCREATITIS. PATIEN HAS CONTINUE TO REFUSE THE KAYEXALATE AND LACTULOSE AND THIS AM INDICATED HE HAS NOT BEEN URINATING AT ALL. FOR DIALYSIS TODAY AND OTUPUT YESTERDAY AT 3000. WILL CONTINUE TO MONITOR INDICATED.
--- NOTE | 2016-12-13 12:06 | NUR ---
BLOOD SUGAR AT THIS TIME AT 120 AND [id number] PAIN MEDICAION AND BENADRYL . WILL MONITOR FOR REFFECTIVENESS.
--- NOTE | 2016-12-13 14:25 | NUR ---
PATIENT COMPLAINS OF NAUSEA AND WILL CALL DR ALARCON FOR ORDERS. PATIENT IS ON DIALYSIS AT THIS TIME. FUNMILAYO AT BEDSIDE AND SECURITY MAINTAINED.
[2016-12-13 14:55] VITALS: BP 132/78
--- NOTE | 2016-12-13 16:47 | NUR ---
GAVE ZOFRAN ORDERED AND MONITORING FOR EFFECTIVENESS OF RELIEF OF NAUSEA.
[2016-12-13 17:51] VITALS: BP 136/82
--- NOTE | 2016-12-13 19:25 | NUR ---
PATIENT RECEIVED AWAKE, ALERT, AND ORIENTED X 4. NO DISTRESS NOTED. IV SITE TO RIGHT FOOT PATENT AND INTACT. IV HEPLOCKED AT THIS TIME. BED IN LOWEST POSITION. CALL LIGHT WITHIN REACH. WILL CONTINUE TO MONITOR.
[2016-12-13 20:32] VITALS: BP 101/52
--- NOTE | 2016-12-14 05:14 | NUR ---
PATIENT RESTED THROUGHOUT THE NIGHT. NO DISTRESS NOTED. MEDICATED PATIENT WITH DILAUDID IVP X 1 PER DOCTOR'S PRN ORDER. PAIN MANAGED THROUGHOUT THE NIGHT. SAFETY AND COMFORT MEASURES MAINTAINED. BED IN LOWEST POSITION. CALL LIGHT WITHIN REACH. WILL CONTINUE TO MONITOR AND ENDORSE TO NEXT SHIFT NURSE.
[2016-12-14 06:00] VITALS: BP 127/63
[2016-12-14 06:45] LABS: CALCIUM 8.3 mg/dL (8.5-10.1); CARBON DIOXIDE 28.7 mmol/L (21-32); CREATININE SERUM 3.3 mg/dL (0.7-1.3)
[2016-12-14 07:04] LABS: BASOPHIL % 0.4 % (0-2); PLATELET COUNT 274 x10^3mcL (130-400); RED CELL DISTRIBUTION WIDTH 14.3 % (11.5-14.5)
--- NOTE | 2016-12-14 07:35 | NUR ---
RECEIVED Pt. AAOX4 RESPIRATATIONS EVEN AND UNLABORED BIPAP IN PLACE. DENIES PAIN/DISCOMFORT AT THIS TIME. NO DISTRESS NOTED PERMACATH AT RIGHT UPPER CHEST DSG CDI. IV SALINE LOCKED AT RIGHT FOOT. TELE IN PLACE. AIR MATTRESS IN PLACE. BED LOW/LOCKED. 2 CORRECTIONAL OFFICERS AT BEDSIDE. CALL LIGHT IN REACH.
[2016-12-14 10:01] VITALS: BP 131/51
--- NOTE | 2016-12-14 13:08 | NUR ---
Pt. C/O GENERAL BODY PAIN 9/10 SCALE AND ITCHINESS. DILAUDID AND BENADRYL GIVEN PER EMAR WILL CONTINUE TO MONITOR.
[2016-12-14 13:35] VITALS: BP 118/61
--- NOTE | 2016-12-14 13:53 | NUR ---
PT WANTED TO TAKE OF BIPAP FOR DIALYSIS. PT TOLERATING ROOM AIR WELL. WILL MONITOR.
--- NOTE | 2016-12-14 15:00 | NUR ---
Pt. VERBALIZED RELIEF POST DILAUDID 3/10 SCALE AT THIS KIKI. DENIES ITCHINESS. Pt. ONGOING HEMODIALYSIS AT THIS TIME. INTENSIVIST AT BEDSIDE.
--- NOTE | 2016-12-14 17:00 | NUR ---
PER ACCOUNTS PAYABLE ANALYST HD OUTPUT 3.6 L
[2016-12-14 17:11] VITALS: BP 133/73
--- NOTE | 2016-12-14 18:29 | NUR ---
Pt. AAOX4. RESPIRATIONS EVEN AND UNLABORED. DENIES CHEST PAIN/PRESSURE.DENIES PAIN/DISCOMFORT AT THIS TIME. NO DISTRESS NOTED. IV AT RIGHT FOOT SALINE LOCKED. TELE IN PLACE. DIALYSIS SITE AT RIGHT UPPER CHEST DSG CDI. AIR MATTRESS IN PLACE. BED LOW/LOCKED. CALL LIGHT IN REACH. 2 COMPUTING SYSTEMS MECHANIC AT BEDSIDE.
--- NOTE | 2016-12-14 18:57 | NUR ---
Pt. JOSEPH GENERAL BODY PAIN 8/10 SCALE DILAUDID GIVEN PER EMAR. Pt. ALSO C/O ITCHINESS AND BENADRYL GIVEN PER EMAR.
--- NOTE | 2016-12-14 19:30 | NUR ---
PATIENT RECEIVED AWAKE, ALERT, AND ORIENTED X 4. NO DISTRESS NOTED. PATIENT DENIES PAIN AT THIS TIME. IV SITE TO RIGHT FOOT, PATENT AND INTACT. IV HEPLOCKED. BED IN LOWEST POSITION. CALL LIGHT WITHIN REACH. WILL CONTINUE TO MONITOR.
[2016-12-14 20:28] VITALS: BP 146/74
[2016-12-14 21:49] VITALS: BP 131/72
--- NOTE | 2016-12-15 05:06 | NUR ---
PATIENT RESTED THROUGHOUT THE NIGHT. NO DISTRESS NOTED. MEDICATED FOR PAIN WITH DILAUDID IVP X 1 PER DOCTOR'S PRN ORDER. SAFETY AND COMFORT MEASURES MAINTAINED. BED IN LOWEST POSITION. CALL LIGHT WITHIN REACH. WILL CONTINUE TO MONITOR AND ENDORSE TO NEXT SHIFT NURSE.
[2016-12-15 05:32] VITALS: BP 154/81
[2016-12-15 06:26] LABS: BASOPHIL % 0.4 % (0-2); PLATELET COUNT 315 x10^3mcL (130-400); RED CELL DISTRIBUTION WIDTH 13.7 % (11.5-14.5)
[2016-12-15 06:40] LABS: CALCIUM 8.4 mg/dL (8.5-10.1); CARBON DIOXIDE 29.3 mmol/L (21-32); CREATININE SERUM 3.3 mg/dL (0.7-1.3); PHOSPHOROUS 4.1 mg/dL (2.5-4.9); POTASSIUM SERUM 4.3 mmol/L (3.5-5.1)
--- NOTE | 2016-12-15 08:04 | NUR ---
PT RECEIVED DURING CHANGE OF SHIFT, A/OX4, TELE 26, NSR, DENIES CHEST PAIN, PULSES PRESENT, TRACE EDEMA, LUNGS DIMINISHED, DENIES SOB, BREATHING EVEN AND UNLABORED, RT PROTOCOL, LBM 12/13/16, DENIES N/V/D, TUNNELED CATH TO RT UPPER CHEST, TO RECEIVE HD TX TODAY, 1L FLUID RESTRICTION, GENERALIZED WEAKNESS, OLD SCAR TO CHEST, DENIES PAIN AT THIS TIME, IV TO RT FOOT, CALM AND COOPERATIVE, CALL LIGHT WITHIN REACH, GUARDS AT BEDSIDE, WILL CONTINUE TO MONITOR.
[2016-12-15 08:40] VITALS: BP 142/78
--- NOTE | 2016-12-15 09:45 | NUR ---
PT DENIES SOB, DENIES PAIN, HELD BP MEDS PER DIALYSIS NURSE ANDREW, REST OF MEDS GIVEN, CALL LIGHT WITHIN REACH, GUARDS AT BEDSIDE, WILL CONTINUE TO MONITOR.
[2016-12-15 10:06] VITALS: BP 159/79
--- NOTE | 2016-12-15 10:11 | NUR ---
PT DENIES SOB, DENIES PAIN, WATCHING TV, CALL LIGHT WITHIN REACH, GUARDS AT BEDSIDE, WILL CONTINUE TO MONITOR.
--- NOTE | 2016-12-15 11:39 | NUR ---
PT DENIES SOB, C/O CHEST PAIN, WILL MEDICATE PER EMAR, BS 153, REFUSED INSULIN, CALL LIGHT WITHIN REACH, GUARDS AT BEDSIDE, WILL CONTINUE TO MONITOR.
--- NOTE | 2016-12-15 12:23 | NUR ---
KAMRAN FERNANDES AT BEDSIDE, HD TX TO BEGIN SOON, PT C/O PAIN 04/07, WILL MEDICATE PER EMAR.
--- NOTE | 2016-12-15 12:39 | NUR ---
DR. SALGUERO SPOKE WITH PT REGARDING STAY AND DIET.
--- NOTE | 2016-12-15 13:06 | NUR ---
DR. FOUNTAIN AT BEDSIDE ASSESSING PT, DIALYSIS NURSE AT BEDSIDE, GUARDS AT BEDSIDE, CALL LIGHT WITHIN REACH, WILL CONTINUE TO MONITOR.
[2016-12-15 13:36] VITALS: BP 163/82
--- NOTE | 2016-12-15 14:04 | NUR ---
HD TX IN PROGRESS, DENIES SOB, DENIES PAIN, GUARDS AT BEDSIDE, KAMRAN RN AT BEDSIDE, CALL LIGHT WITHIN REACH, WILL CONTINUE TO MONITOR.
--- NOTE | 2016-12-15 15:05 | NUR ---
PT WATCHING TV, NO INDICATION OF PAIN, BREATHING EVEN AND UNLABORED, GUARDS AT BEDSIDE, KAMRAN RN AT BEDSIDE, HD TX IN PROGRESS, CALL LIGHT WITHIN REACH, WILL CONTINUE TO MONITOR.
--- NOTE | 2016-12-15 16:11 | NUR ---
PT DENIES SOB, DENIES PAIN, HD TX FINISHED, 4L OUT, CALL LIGHT WITHIN REACH, BS 211, WILL MEDICATE PER EMAR, GUARDS AT BEDSIDE, WILL CONTINUE TO MONITOR.
[2016-12-15 16:46] VITALS: BP 142/78
--- NOTE | 2016-12-15 17:11 | NUR ---
PT RECEIVING BREATHING TX.
--- NOTE | 2016-12-15 18:11 | NUR ---
PT C/O 04/07 ABD/CHEST PAIN, WILL MEDICATE PER EMAR, DENIES SOB, GUARDS AT BEDSIDE, CALL LIGHT WITHIN REACH, WILL ENDORSE PT TO NEXT SHIFT.
--- NOTE | 2016-12-15 19:30 | NUR ---
SEEN IN BED AWAKE,ALERT, ORIETNED X4. NO RESP DISTRESS NOTED ON ROOM AIR. DENIES PAIN AT THIS TIME. S/P HD TODAY WITH 4L NET OUPUT. TUNNELD CATHETER NOTED TO RIGHT CHEST WALL WITH DRESSING CDI, NO SIGNS OF INFLAMATION NOTED. ON HEPARIN SQ PROPHYLAXIS. GENERALIZED BODY WEAKNESS. AIR MATTRESS ON. S/L TO RIGHT FOOT PATENT. 1L FLUID RESTRICTION INFORMED. CALL LIGHT PLACED WITHIN REACH. SIDERAILS UP X2. CORRECTIONAL GUARDS AT BEDSIDE.
[2016-12-15 21:22] VITALS: BP 152/77
[2016-12-16 06:05] VITALS: BP 145/72
--- NOTE | 2016-12-16 06:41 | NUR ---
NO ACUTE DISTRESS THROUGHOUT THE SHIFT. DILAUDID 1MG IV GIVEN X2 DURING THE NIGHT WITH GOOD RELIEF. LASIX 120MG IV WAS GIVEN, NO URINE OUTPUT NOTED TO URINAL( HAD HEMODIALYSIS YESTERDAY). S/L TO RIGHT FOOT INTACT AND PATENT. TUNNELED CATHETER WITH DRSG CDI.
--- NOTE | 2016-12-16 07:39 | NUR ---
PT RECEIVED DURING CHANGE OF SHIFT, A/OX4, TELE 26, NSR, PT C/O 09/07 CHEST PAIN, STATES IT IS TOLERABLE, TRACE EDEMA BLE, LUNGS DIM MIRELLA, DENIES SOB, BREATHING EVEN AND UNLABORED, RT PROTOCOL, BIPAP, BOWEL SOUNDS ACTIVE, DENIES N/V/D, LAST HD TX 12/15/16, TUNNELED CATH TO RT CHEST, DRESSING CDI, 1L FLUID RESTRICTION FOR 24HRS, REPORTS NO URINE SINCE 12/15/16, GENERALIZED WEAKNESS, OLD SCAR TO CHEST, DENIES PAIN OTHER THAN CHEST, IV TO RT FOOT, IV WNL, CALL LIGHT WITHIN REACH, GUARDS AT BEDSIDE, CALM AND COOPERATIVE, WILL CONTINUE TO MONITOR.
--- NOTE | 2016-12-16 08:59 | NUR ---
DENIES PAIN, DENIES SOB, WATCHING TV, CALL LIGHT WITHIN REACH, GUARDS AT BEDSIDE, WILL CONTINUE TO MONITOR.
--- NOTE | 2016-12-16 10:07 | NUR ---
PT WATCHING TV, NO INDICATION OF PAIN, BREATHING EVEN AND UNLABORED, GUARD AT BEDSIDE, CALL LIGHT WITHIN REACH, WILL CONTINUE TO MONITOR.
[2016-12-16 10:16] VITALS: BP 118/60
--- NOTE | 2016-12-16 11:30 | NUR ---
PT DENIES SOB, DENIES PAIN, CALL LIGHT WITHIN REACH, GUARDS AT BEDSIDE, BS 284 WILL COVER ACCORDING TO SCALE, WILL CONTINUE TO MONITOR.
--- NOTE | 2016-12-16 12:20 | NUR ---
PT DENIES SOB, RECEIVING BREATHING TX, C/O ABD/CHEST PAIN OF 10/10, MEDICATED PER EMAR, CALL LIGHT WITHIN REACH, WILL CONTINUE TO MONITOR.
--- NOTE | 2016-12-16 13:19 | NUR ---
PT WATCHING TV, DENIES SOB, DENIES PAIN, GUARDS AT BEDSIDE, CALL LIGHT WITHIN REACH, REFUSED LACTULOSE, WILL CONTINUE TO MONITOR.
[2016-12-16 14:15] VITALS: BP 138/67
--- NOTE | 2016-12-16 14:50 | NUR ---
PT DENIES SOB, DENIES PAIN, GUARDS AT BEDSIDE, CALL LIGHT WITHIN REACH, WILL CONTINUE TO MONITOR.
--- NOTE | 2016-12-16 15:13 | NUR ---
PT DENIES SOB, DENIES PAIN, WATCHING TV, CALL LIGHT WITHIN REACH, GUARDS AT BEDSIDE, WILL CONTINUE TO MONITOR.
--- NOTE | 2016-12-16 16:35 | NUR ---
PT DENIES SOB, DENIES PAIN, WATCHING TV, BS 152, REFUSED INSULIN, GUARDS AT BEDSIDE, CALL LIGHT WITHIN REACH, WILL CONTINUE TO MONITOR.
[2016-12-16 17:03] VITALS: BP 113/63
--- NOTE | 2016-12-16 17:28 | NUR ---
PT DENIES SOB, DENIES PAIN, LUNCH TRAY ARRIVED, GUARDS AT BEDSIDE, CALL LIGHT WITHIN REACH, WILL CONTINUE TO MONITOR.
--- NOTE | 2016-12-16 18:21 | NUR ---
PT C/O ABD/CHEST PAIN 03/07, MEDICATED PER EMAR, DENIES SOB, GUARDS AT BEDSIDE, CALL LIGHT WITHIN REACH, WILL ENDORSE PT TO NEXT SHIFT.
--- NOTE | 2016-12-16 19:20 | NUR ---
SEEN IN BED AWAKE, ALERT, ORIENTED X4. NO RESP DISTRESS NOTED ON ROOM AIR. TUNNELED CATHETER NOTED TO RIGHT CHEST WALL WITH DRSG CDI. ON FLUID RESTRICTION 1L PER DAY, PATIENT MADE AWARE. LAST HEMODIALYSIS WAS YESTERDAY. TRACE EDEMA TO BLE. S/L TO RIGHT FOOT INTACT AND PATENT. AIR MATTRESS ON. CALL LIGHT PLACED WITHIN EASY REACH. SIDERAILS UP X2.
[2016-12-16 21:31] VITALS: BP 123/61
[2016-12-17 05:32] VITALS: BP 164/78
--- NOTE | 2016-12-17 06:33 | NUR ---
NO ANY DISTRESS NOTED THROUGHOUT THE SHIFT. VSS. REMAINS ON FLUID RESTRICTION AT 1L/DAY. VOIDED X1. DILAUDID 1MG IV GIVEN X2 FOR CHEST PAIN/ABD PAIN WITH GOOD RELIEF.
[2016-12-17 07:22] LABS: CALCIUM 9.1 mg/dL (8.5-10.1); CARBON DIOXIDE 28.6 mmol/L (21-32)
[2016-12-17 07:37] LABS: CREATININE SERUM 4.4 mg/dL (0.7-1.3)
--- NOTE | 2016-12-17 07:50 | NUR ---
RECEIVED THE PATIENT ALERT AND ORIENTED TO PERSON, PLACE AND TIME. PATIENT DENIED SHORTNESS OF BREATH OR NAUSEA/VOMITING. PATIENT STATED HAVING EPISODES OF CHEST PAIN BUT THE PAIN WENT AWAY ABOUT 4H AFTER RECEIVING THE PAIN MED VIA IVP. THE PATIENT DENIED PAIN AT THIS TIME (DILAUDID 1MG IVP WAS ADMINISTERED TO THE PATIENT AT 0423 AM). TELE # 26 READS SINUS RHYTHMS. HD CATH TO RIGHT CHEST WITH DRESSING INTACT. SL TO RIGHT FOOT. CALL LIGHT WITHIN REACH. SIDE RAILS UP X3. BED WAS AT LOWEST POSITION. THE GUARDS WERE AT BEDSIDE.
[2016-12-17 10:13] VITALS: BP 125/61
--- NOTE | 2016-12-17 10:35 | NUR ---
HD NURSE WAS ST BEDSIDE TO SET UP HD MACHINE. THE HD ORDER AND LAB WERE PROVIDED TO THE NURSE.
--- NOTE | 2016-12-17 12:10 | NUR ---
TELEPHONE ORDER AND READ BACK BY THE HD NURSE KAMRAN KLEIN FROM DR. UGARTE: HEPARIN 5000 UNITS X 2 WAS ENTERED SO THAT THE HEPARIN WILL BE USED TO FLUSH THE HEMODIALYSIS PORTS AFTER HD.
[2016-12-17 12:50] VITALS: BP 130/76
--- NOTE | 2016-12-17 14:27 | NUR ---
THE HEMODIALYSIS WAS COMPLETED AND THE REPORT WAS GIVEN TO THE CHARGE NURSE WITH 2600 ML OF OUTPUT AND LAST BP 113/47, HR 71.
[2016-12-17 17:20] VITALS: BP 127/67
--- NOTE | 2016-12-17 18:56 | NUR ---
DR. RIVERA IN TO SEE THE PATIENT AND WAS INFORMED THAT THE PATIENT'S TROP LEVEL THIS MORNING WAS 0.230. DOCTOR SAID, "IT IS OK." ALSO, DOCTOR RIVERA WAS NOTIFIED THAT THE PATIENT'S MANY BP MEDS WERE HELD TODAY BECAUSE THE PATIENT HAD HEMODIALYSIS TODAY WITH NORMAL SBP (120-130). DOCTOR WILL GO OVER THE BP MEDS AFTER READING THE RECORD FROM PREVIOUS HOSPITALIZATION FROM OTHER HOSPITAL FAXED TO [facility].
--- NOTE | 2016-12-17 19:45 | NUR ---
PT ALERT/ORIENTED X4. NO C/O PAIN. PT C/O NAUSEA. MEDICATED WITH ZOFRAN 4 MG IVP AT 1948. PT IS CIM; GUARDS IN ROOM. TELE # 26, SR, HR; 71. PT ASSESSED; SEE NSG FLOWSHEET. SAFETY REINFORCED; SEE EDUCAT SHEET. WILL CONTINUE TO MONITOR.
--- NOTE | 2016-12-17 20:30 | NUR ---
PT SLEEPING. MEDICATED WITH ZOFRAN AT 1948 FOR NAUSEA (SEE EMAR). WILL CONTINUE TO MONITOR.
[2016-12-17 20:56] VITALS: BP 105/54
--- NOTE | 2016-12-17 20:59 | NUR ---
RT STATED PT IS REFUSING BREATHING TX AND TO WEAR HIS O2. RT STATED PT IS SATTING BETWEEN 85-87% ON RA. WENT IN PT ROOM, INFORMED HIM HOW IMPORTANT IT IS TO HAVE THE BREATHING TX, PT STILL REFUSED. ALSO INFORMED PT THE IMPORTANCE OF WEARING THE O2; PT THEN LET ME PUT THE O2 ON AT 2 LITERS VIA NC. WILL CONTINUE TO MONITOR.
[2016-12-17 22:40] VITALS: BP 157/76
--- NOTE | 2016-12-17 22:40 | NUR ---
PT C/O N/V. PT VOMITED A SMALL AMOUNT OF BROWN EMESIS. MEDICATED WITH ZOFRAN 4 MG IVP PER MD PRN ORDER. PT ALSO C/O CP, STATES SHARP, RATES AT A 10/10. MEDICATED WITH DILAUDID 1 MG IVP PER MD PRN ORDER. BP; 157/76, HR; 72, 02 SAT ON 2 LITERS O2 VIA NC; 95%, HR; 72. MAP; 103. WILL CONTINUE TO MONITOR.
--- NOTE | 2016-12-17 23:30 | NUR ---
PT NO C/O CP, PT WAS GIVEN DILAUDID IVP AT 224 (SEE EMAR). PT C/O MILD NAUSEA, PT WAS MEDICATED WITH ZOFRAN 4 MG IVP AT 2248 (SEE EMAR). WILL CONTINUE TO MONITOR.
--- NOTE | 2016-12-18 01:39 | NUR ---
PT SLEEPING.NO DISTRESS NOTED. BREATHING IS EVEN AND UNLABORED. WILL CONTINUE TO MONITOR.
--- NOTE | 2016-12-18 02:58 | NUR ---
PT SLEEPING. BREATHING IS EVEN AND UNLABORED. NO DISTRESS NOTED. WILL CONTINUE TO MONITOR.
[2016-12-18 04:38] VITALS: BP 132/58
--- NOTE | 2016-12-18 04:40 | NUR ---
PT C/O CP AND NAUSEA. MEDICATED WITH ZOFRAN 4 MG IVP AT 0440. MEDICATED WITH DILAUDID AT 0446 FOR CP. VS; BP; 132/58, HR; 66, MAP; 89, O2 SAT ON 2 LITERS VIA NC; 95%, TEMP; 98.5, RESP; 18. PER TECH; TELE MONITOR SHOWS SR. WILL CONTINUE TO MONITOR.
--- NOTE | 2016-12-18 04:56 | NUR ---
GAVE PT A CAN OF DIET SPRITE TO HELP WITH THE NAUSEA
--- NOTE | 2016-12-18 05:30 | NUR ---
PT NO C/O CP. PT WAS MEDICATED WITH DILAUDID AT 0446 (SEE EMAR) PT STATES MODERATE NAUSEA. PT WAS MEDICATED WITH ZOFRAN AT 0440 (SEE EMAR). WILL CONTINUE TO MONITOR.
[2016-12-18 06:09] LABS: BASOPHIL % 0.3 % (0-2); PLATELET COUNT 390 x10^3mcL (130-400); RED CELL DISTRIBUTION WIDTH 13.4 % (11.5-14.5)
[2016-12-18 06:44] LABS: CARBON DIOXIDE 29.3 mmol/L (21-32); PHOSPHOROUS 3.9 mg/dL (2.5-4.9); POTASSIUM SERUM 4.5 mmol/L (3.5-5.1)
[2016-12-18 06:54] LABS: CREATININE SERUM 4.3 mg/dL (0.7-1.3)
--- NOTE | 2016-12-18 07:45 | NUR ---
RESUME CARE: PATIENT ALERT AND ORIENTED TO PERSON, PLACE AND TIME. DENIED SHORTNESS OF BREATH OR PAIN AT THIS TIME. PATIENT STATED HAVING EPISODES OF NAUSEA; IT IS MILD AT THIS TIME. SAUL CATH TO RIGHT UPPER CHEST WITH DRESSING INTACT. TELE # 26 READ SINUS RHYTHMS. SL TO RIGHT FOOT FLUSHED WELL. CALL LIGHT WITHIN REACH. SIDE RAILS UP X2. THE GUARDS AT BEDSIDE.
[2016-12-18 08:45] VITALS: BP 141/68
--- NOTE | 2016-12-18 09:15 | NUR ---
DR. SALGUERO WAS AWARE OF THE PATIENT'S WBC 17.2 THIS MORNING. SHE ORDERED BLOOD CULTURE, CXR, LIPASE AND AMYLASE LEVELS.
[2016-12-18 09:50] VITALS: BP 97/64
[2016-12-18 10:47] LABS: AMYLASE 38 U/L (25-115); LIPASE 75 IU/L (73-393)
--- NOTE | 2016-12-18 12:10 | NUR ---
DR. RODGERS WAS INFORMED OF THE CXR RESULT AND AMYLASE AND LIPASE LEVELS. NO FURTHER ORDER RECEIVED.
--- NOTE | 2016-12-18 13:05 | NUR ---
CALLED [facility] AND GAVE REPORT TO DENA QUIGLEY. ALL QUESTIONS WERE ANSWERED.
[2016-12-18 13:15] VITALS: BP 97/64
--- NOTE | 2016-12-18 13:30 | NUR ---
PER CIM EBENEZER WILL BE HERE AT 3PM. TRANSPORTATION ARRANGED WITH [facility] FOR 3 PM. ATTENDING NURSE BASIL MADE AWARE,
[2016-12-18 13:45] VITALS: BP 102/52
--- NOTE | 2016-12-18 15:35 | NUR ---
THE [facility] WAS HERE TO RELEASE ENGINEER THE PATIENT. THE TRANSFER PACKET WAS HANDED TO THE TEAM. THE TELE WAS REMOVED FROM THE PATIENT. THE PATIENT WAS TRANSFERRED TO [facility] IN STABLE CONDITION. ALL BELONGINGS WERE SENT THERE WITH THE PATIENT UPON DISCHARGE.
== END 2016-12-18 15:35 | disposition short-term general hospital (02) | DRG 871 ==
LOC: ED 15:00 → DU 16:37
PROVIDERS: Internal Medicine; Internal Medicine Cardiovascular Disease; Internal Medicine Nephrology; Surgery; ADMIT Internal Medicine
PROC: 5A09457 Assistance with Respiratory Ventilation, 24-96 Consecutive Hours, Continuous Positive Airway Pressure (ICD-10-PCS; 2016-12-11)
PROC: 02HV33Z Insertion of Infusion Device into Superior Vena Cava, Percutaneous Approach (ICD-10-PCS; principal; 2016-12-11 13:00)
DX: A41.9 Sepsis, unspecified organism (principal); J96.00 Acute respiratory failure, unspecified whether with hypoxia or hypercapnia; N18.6 End stage renal disease; I25.110 Atherosclerotic heart disease of native coronary artery with unstable angina pectoris; K86.1 Other chronic pancreatitis; N17.9 Acute kidney failure, unspecified; I13.2 Hypertensive heart and chronic kidney disease with heart failure and with stage 5 chronic kidney disease, or end stage renal disease; Z68.42 Body mass index [BMI] 45.0-49.9, adult; J44.1 Chronic obstructive pulmonary disease with (acute) exacerbation; I42.9 Cardiomyopathy, unspecified; I42.7 Cardiomyopathy due to drug and external agent; E78.5 Hyperlipidemia, unspecified; E11.22 Type 2 diabetes mellitus with diabetic chronic kidney disease; I50.9 Heart failure, unspecified; I25.2 Old myocardial infarction; Z79.4 Long term (current) use of insulin; Z87.891 Personal history of nicotine dependence; Z91.19 Patient's noncompliance with other medical treatment and regimen; Z86.73 Personal history of transient ischemic attack (TIA), and cerebral infarction without residual deficits; E87.5 Hyperkalemia; D64.9 Anemia, unspecified; E66.01 Morbid (severe) obesity due to excess calories; G47.33 Obstructive sleep apnea (adult) (pediatric); Z88.6 Allergy status to analgesic agent; Z88.8 Allergy status to other drugs, medicaments and biological substances; Z95.1 Presence of aortocoronary bypass graft
CPT/HCPCS: 36600; 80307; 82962; 83880; 86480; A4301; A4719; J0690; J1170; J1642; J1644; J1815; J1940; J2001; J2250; J2405; J3010; J3490; J7030; J7613; J7620; J7644; Q0092; Q0163